=== PATIENT | male | born 2000 | race Caucasian/White ===

== ENCOUNTER 2022-04-07 22:03 | Emergency (ER) | payer OTHER ==
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
[2022-04-07 22:41] LABS: Absolute Neutrophil Ct (ANC) 9.67 x10^3/uL (1.4-6.9); Basophil (Absolute #) 0.06 x10^3/uL (0-0.4); Eosinophil % 0.8 % (0.00-5.0); Hematocrit 40.1 % (42-50); Hemoglobin 13.2 g/dL (12.5-18.0); Lymphocyte (Absolute #) 2.05 x10^3/uL (1.0-4.6); Lymphocytes % 16.1 % (24.0-44.0); Mean Cell Volume 86.8 fL (78-100); Mean Corpuscular Hemoglobin 28.6 pg (26-32); Mean Corpuscular Hgb Concent. 32.9 g/dL (32-36); Mean Platelet Volume 10.1 fL (7.5-11.0); Monocyte (Absolute #) 0.83 x10^3/uL (0.0-1.3); Monocytes % 6.5 % (0.0-12.0); Neutrophil % 75.6 % (36.0-66.0); Platelet Count 375 x10^3/uL (150-450); Red Blood Count 4.62 x10^6/uL (4.1-5.6); Red Cell Distribution Width 13.4 % (11.5-14.0); White Blood Count 12.8 x10^3/uL (4.0-10.5)
[2022-04-07 22:54] LABS: ALBUMIN 4.5 g/dL (3.5-5.0); ALKALINE PHOSPHATASE 97 U/L (38-126); BLOOD UREA NITROGEN 11 mg/dL (9-20); CHLORIDE 107 mmol/L (98-107); Calcium 9.8 mg/dL (8.4-10.2); Carbon Dioxide 20 mmol/L (22-30); Creatinine 1 0.71 mg/dL (0.66-1.25); EST GLOMERULAR FILTRATION RATE > 60.0 ML/MIN; Glucose 105 mg/dL (74-106); Potassium 3.7 mmol/L (3.5-5.1); SGOT/AST 27 U/L (17-59); SGPT/ALT 15 U/L (0-50); SODIUM 143 mmol/L (137-145); Total Protein 7.7 g/dL (6.3-8.2)
[2022-04-08 02:38] LABS: Amphetamine,Urine NEGATIVE (NEGATIVE); Barbiturate,Urine NEGATIVE (NEGATIVE); Benzodiazepine,Urine NEGATIVE (NEGATIVE); Cocaine,Urine NEGATIVE (NEGATIVE); Methadone,Urine NEGATIVE (NEGATIVE); Opiate,Urine NEGATIVE (NEGATIVE); PCP,Urine NEGATIVE (NEGATIVE); THC,Urine NEGATIVE (NEGATIVE)
[2022-04-08 03:05] VITALS: BP 126/85; PULSE 70; O2SAT 99
--- NOTE | 2022-04-08 08:56 | XRAY ---
Indication: Chest pain. Elevated d-dimer. Multiple contiguous axial images obtained through the chest using 100 cc Isovue 370 contrast and PE protocol. Comparison: None Good opacification of the pulmonary arteries to includes the lobar and segmental branches. No pulmonary embolus. Heart not enlarged. Aorta is normal in course and caliber. No pathologic mediastinal/hilar lymphadenopathy. Lungs inflated and clear. Bony thorax intact. Limited upper abdomen unremarkable. Impression: Normal CT pulmonary embolus exam. Comment: Preliminary interpretation made by [facility]. No critical discrepancy.
== END 2022-04-08 03:06 | disposition home or self-care (01) ==
LOC: ED 22:03
DX: R07.9 Chest pain, unspecified (principal); R06.02 Shortness of breath; R11.2 Nausea with vomiting, unspecified; R19.7 Diarrhea, unspecified; M79.10 Myalgia, unspecified site; Z79.891 Long term (current) use of opiate analgesic
CPT/HCPCS: 36000; 36415; 71260; 80053; 80307; 84484; 85025; 85379; 93005; 93041; 94760; 99284

== ENCOUNTER 2023-04-04 13:47 | Emergency (ER) | payer OTHER ==
[2023-04-04] MEDS ORDERED: Keppra 500 MG/5 ML ONE (13:52)
[2023-04-04] MEDS ORDERED: SUBLIMAZE 100 MCG/2 ML ONE (13:54)
[2023-04-04] MEDS ORDERED: Zofran 4 MG/2 ML VIAL ONE (13:54)
[2023-04-04] MEDS ORDERED: Propofol 1000 mg/100 ml Bottle 100 ML IV ONE (14:04)
[2023-04-04] MEDS ORDERED: DIPRIVAN 200 MG/20 ML IV ONE (14:05)
[2023-04-04] MEDS ORDERED: Amidate 20 MG/10 ML IV ONE (14:05)
[2023-04-04] MEDS ORDERED: Zemuron 100 MG/10 ML IV ONE (14:05)
[2023-04-04] MEDS ORDERED: Quelicin Fliptop 200 MG/10 ML IV ONE (14:05)
[2023-04-04] MEDS ORDERED: VERSED 5 MG/5 ML IV ONE (14:05)
[2023-04-04] MEDS ORDERED: Sodium Chloride 0.9% 1000 ML 1,000 ML IV STA (14:13)
[2023-04-04 14:17] VITALS: BP 125/77; PULSE 81; O2SAT 93
[2023-04-04] MEDS ORDERED: Sodium Chloride 0.9% 1000 ML 1,000 ML ONE ×2 (14:18→14:35)
[2023-04-04 14:20] LABS: Absolute Neutrophil Ct (ANC) 8.92 x10^3/uL (1.4-6.9); BASOPHIL % 0.6 % (0.0-0.4); Basophil (Absolute #) 0.08 x10^3/uL (0-0.4); Eosinophil (Absolute #) 0.39 x10^3/uL (0-0.5); Hematocrit 42.4 % (42-50); Hemoglobin 13.7 g/dL (12.5-18.0); IMMATURE GRAN # 0.06 x10^3u/L (0.00-0.03); IMMATURE GRAN % 0.5 % (0.00-0.4); Lymphocyte (Absolute #) 2.52 x10^3/uL (1.0-4.6); Lymphocytes % 19.5 % (24.0-44.0); Mean Cell Volume 87.8 fL (78-100); Mean Corpuscular Hemoglobin 28.4 pg (26-32); Mean Corpuscular Hgb Concent. 32.3 g/dL (32-36); Mean Platelet Volume 10.7 fL (7.5-11.0); Monocyte (Absolute #) 0.94 x10^3/uL (0.0-1.3); Monocytes % 7.3 % (0.0-12.0); Neutrophil % 69.1 % (36.0-66.0); Platelet Count 263 x10^3/uL (150-450); Red Blood Count 4.83 x10^6/uL (4.1-5.6); White Blood Count 12.9 x10^3/uL (4.0-10.5)
[2023-04-04 14:27] LABS: ALBUMIN 4.6 g/dL (3.5-5.0); ALKALINE PHOSPHATASE 78 U/L (38-126); AMYLASE 84 U/L (30-110); ANION GAP 18.3 MEQ/L (5-15); BLOOD UREA NITROGEN 13 mg/dL (9-20); CHLORIDE 106 mmol/L (98-107); Calcium 9.2 mg/dL (8.4-10.2); Carbon Dioxide 22 mmol/L (22-30); Creatinine 1 0.73 mg/dL (0.66-1.25); EST GLOMERULAR FILTRATION RATE > 60.0 ML/MIN; Glucose 113 mg/dL (74-106); LIPASE 77 U/L (23-300); Potassium 3.4 mmol/L (3.5-5.1); SGOT/AST 29 U/L (17-59); SGPT/ALT 21 U/L (0-50); SODIUM 143 mmol/L (137-145); Total Protein 8.2 g/dL (6.3-8.2)
[2023-04-04 14:36] LABS: Appearance Clear (Clear); Bacteria None Seen /HPF (None Seen); Bilirubin Negative (Negative); Blood Negative (Negative); Epithelial Cells None Seen /HPF (None Seen); Glucose, Urine Negative (Negative); Ketones Negative (Negative); Leukocyte Esterase Negative (Negative); Nitrite Negative (Negative); Protein,Urine Dip Trace (Negative); RBC 0-2 /HPF (0-5); Specific Gravity 1.025 (1.005-1.030)
[2023-04-04] MEDS ORDERED: Sodium Chloride 0.9% 100 ML ONE (14:36)
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
[2023-04-04 14:45] LABS: Amphetamine,Urine NEGATIVE (NEGATIVE); Barbiturate,Urine NEGATIVE (NEGATIVE); Benzodiazepine,Urine NEGATIVE (NEGATIVE); Cocaine,Urine NEGATIVE (NEGATIVE); Methadone,Urine NEGATIVE (NEGATIVE); Opiate,Urine NEGATIVE (NEGATIVE); PCP,Urine NEGATIVE (NEGATIVE); THC,Urine NEGATIVE (NEGATIVE)
[2023-04-04 14:47] LABS: ADD URINE CULTURE? YES (NO)
--- NOTE | 2023-04-04 14:59 | XRAY ---
CLINICAL HISTORY:trauma COMPARISON:None; TECHNIQUES:Xray of Chest-AP Portable 1 View. FINDINGS: Cardiac size is within normal limits. Normal hilar shadows. No active lung lesion. No major collapse or consolidation. No evidence of pleural effusion or pneumothorax. Soft tissues and bony rib cage appear normal. Endotracheal tube noted in situ. IMPRESSION: No acute cardiopulmonary abnormality was detected. Electronically Signed by: Simon Monae MD. (04/04/2023 13:55:31 MANAGER OF [employer]CIAL [employer]ING)
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
== END 2023-04-04 14:50 | disposition short-term general hospital (02) ==
LOC: ED 13:47
DX: S09.90XA Unspecified injury of head, initial encounter (principal); S01.81XA Laceration without foreign body of other part of head, initial encounter; S40.812A Abrasion of left upper arm, initial encounter; S80.812A Abrasion, left lower leg, initial encounter; S30.810A Abrasion of lower back and pelvis, initial encounter; S20.412A Abrasion of left back wall of thorax, initial encounter; V86.06XA Driver of dirt bike or motor/cross bike injured in traffic accident, initial encounter
CPT/HCPCS: 31500; 36000; 36415; 71045; 72170; 80053; 80307; 81001; 82150; 83605; 83690; 84484; 85025; 87086; 93005; 94799; 99284; 99291; J0330; J1953; J2250; J2405; J2704; J3010